=== PATIENT | male | born 1985 | race Caucasian/White ===

== ENCOUNTER 2016-08-01 07:53 | Emergency (ER) | payer SELFPAY ==
[~2016-08-01 07:53] MED LIST: NORCO 5-325 TA1 EACH PO
--- NOTE | 2016-08-16 08:13 | ER ---
ADMIT: 08/01/2016 RM/LOC: ER [facility] MR#: [id number] [id number] TATI CRUZ [address] [place] [id number] Emergency Room Report SEX: M AGE: 31 : 1985 DATE: 08/01/2016 ADDENDUM: This patient comes into the ER because he has had vomiting and diarrhea since yesterday. His kids are at home sick with similar symptoms. He is worried he is dehydrated because it hurts in his low back and he is concerned that his kidneys are not working. On physical exam, his abdomen is soft. He does not appear to be in a lot of pain. IV of normal saline was started. He was given a liter of bolus. Kidney function was normal. We will have him push fluids. I wrote a prescription for Zofran and follow up with his doctor if he continues to not keep fluids down. JAN Glez / [place] Spring MD / angel JOB #: [id number] CC: [place] Spring MD, Attending Physician Amarilys Can MD, Family Physician
== END 2016-08-01 10:33 | disposition home or self-care (01) ==
LOC: ER 07:53
DX: R11.10 Vomiting, unspecified (principal); R19.7 Diarrhea, unspecified; K21.9 Gastro-esophageal reflux disease without esophagitis; Z90.49 Acquired absence of other specified parts of digestive tract